=== PATIENT | male | born 1995 | race African-American/Black ===

== ENCOUNTER 2021-04-23 23:49 | Emergency (ER) | payer SELFPAY ==
[2021-04-23 23:51] VITALS: BP 168/109; PULSE 86; RESP 15; TEMP 36.3; O2SAT 99; BMI 29.1
--- NOTE | 2021-04-24 00:10 | EX.ED.DYSGE1 ---
HPI History of Present Illness Chief Complaint: Hypertension Informant: patient and spouse/S.O. Narrative Narrative: Patient presents with high blood pressure. This patient was diagnosed with high blood pressure back when he was in high school. He has a strong family history of high blood pressure. He was on an unknown medicine until about a year and a half ago. He stopped it because of side effects. He does not know the name of it. He comes in because he has noticed over the last weeks his blood pressure is going up. When the blood pressure is high he will sometimes get mild sense of lightheadedness or transient blurry vision. He feels fine now. No change in urine output. No fevers chills. No numbness tingling weakness. No trouble breathing. PFSH PFSH Home Medications amlodipine 5 mg PO DAILY #30 tab 04/24/21 [Rx Last Taken Unknown] Allergy/AdvReac Type Severity Reaction Status Date / Time No Known Allergies Allergy Verified 04/23/21 23:52 Social History Smoking Status: Current every day smoker tobacco type: e-cigarettes ROS ROS ED Constitutional Constitutional ED: Denies chills or fever(s) Eyes Eyes: Reports blurry vision; Denies diplopia ENT ENT ED: Denies rhinorrhea or sore throat Cardiovascular Cardiovascular: Denies chest pain, palpitations or racing heartbeat Respiratory/Chest Respiratory/Chest: Denies cough or dyspnea Gastrointestinal Gastrointestinal: Denies nausea or vomiting Genitourinary Genitourinary ED: Denies urinary frequency Musculoskeletal Musculoskeletal: Denies arthralgias or myalgias Integumentary Denies rash Neurologic Neurologic: Reports headache(s) and other Details: Mild headache diffusely if his blood pressure is up. Not currently present. ; Denies paresthesias or weakness Psychiatric Psychiatric: Denies anxiety or depression Endocrine Endocrinology: Denies polydipsia or polyuria Allergic/Immunologic Allergic/Immunologic ED: Denies urticaria EXAM Physical Exam Const Vital Signs: 04/23/21 23:51 04/23/21 23:53 Temperature 97.4 F L Temperature Source Temporal Pulse Rate 86 Respiratory Rate 15 Respiratory Effort Normal Non-Labored Respiratory Pattern Normal Blood Pressure 168/109 H Blood Pressure Mean 128 Pulse Ox 99 Oxygen Delivery Method Room Air Positive well nourished and well developed General Appearance ED: well developed and NAD; Negative for cyanotic or diaphoretic HEENT Reports moist mucous membranes Negative for trauma Eyes PERRL and EOMs intact bilaterally Eyes Narrative: Funduscopic exam was done directly. I did not see any indication of AV nicking which surprised me with his history. Overall normal exam. Neck supple Chest Wall inspection of chest normal Resp normal respiratory effort and clear to auscultation bilaterally Effort and Inspection: Negative for pain with movement Auscultation: Negative for rales, rhonchi or wheezes Cardio regular rate, regular rhythm and no murmurs GI normal to inspection, nondistended, normoactive bowel sounds and non-tender Palpation: soft Back/Spine no CVA tenderness Neuro no sensory deficits noted Sensorium / Orientation: alert; Negative for lethargic or stuporous Motor Exam: strength 5/5 throughout Psych mental status grossly normal Skin no rashes or lesions noted MDM MDM MDM Narrative Medical decision making narrative: I talked the patient about options. We were talking about doing blood work to make sure renal function was normal. Would consider chest x-ray looking at cardiac size. Patient states he feels fine. He knows he needs to be back on his meds. He really would just like to try to get some medication and follow-up. I think this is a reasonable option. He is asymptomatic now. I explained that I will give him a number to follow-up with. However he is welcome to follow-up with anyone. However, follow-up is extremely important and is one of the most important parts of today's visits. We need to see if the dose of medicine I give him helps. He may need to change either dose or type of medication for effectiveness or side effects. If he develops chest pain, trouble breathing, neurologic symptoms bad headaches he may need to return. I will give him refills on the meds. I know it can take a while to get into a primary physician on first visit. Discharge Plan Triage Chief Complaint: Hypertension ED Provider: Gurjit Sellers Dx/Rx/DC Orders Clinical Impression: Hypertension Instructions: ED High Blood Pressure Hypertension Prescriptions: New amlodipine 5 mg tablet 5 mg PO DAILY Qty: 30 RF: 2 Primary Care Provider: Care Physician,No Primary Referrals: Alfonso Cordero MD [STAFF PHYSICIAN] - As soon as possible Care Physician,No Primary [Primary Care Provider] - Disposition Disposition: Home, Self Care
[2021-04-24] MEDS: amLODIPine 5 MG Tablet PO (00:23)
[2021-04-24 00:25] VITALS: BP 175/100; PULSE 75; RESP 17; O2SAT 100
== END 2021-04-24 00:26 | disposition home or self-care (01) ==
PROVIDERS: Emergency Provider Emergency Medicine; Visit Provider Emergency Medicine
DX: I10 Essential (primary) hypertension (principal); F17.290 Nicotine dependence, other tobacco product, uncomplicated
CPT/HCPCS: 99283

== ENCOUNTER 2021-07-06 21:05 | Emergency (ER) | payer SELFPAY ==
[2021-07-06 21:06] VITALS: BP 147/96; PULSE 86; RESP 16; TEMP 36.6; O2SAT 99; BMI 29.0
--- NOTE | 2021-07-06 21:36 | EX.ED.DYSGE1 ---
HPI History of Present Illness Chief Complaint: Back Informant: patient Onset/Context/Timing Onset: Today Context: Gradual Onset Current Severity: Moderate Maximum Severity: Moderate Narrative Narrative: Patient present secondary to back pain and spasm. He picked up his daughter's car seat earlier today and felt a slight pull in his back. After a car ride he noted increased tightness in his back. He has pain radiating into the thighs bilaterally. There was no fall or direct injury to his back. PFSH PFSH no medical history Home Medications amlodipine 5 mg PO DAILY #30 tab 04/24/21 [Rx Last Taken Unknown] cyclobenzaprine 10 mg PO BID PRN #10 tab 07/06/21 [Rx Last Taken Unknown] naproxen [Naprosyn] 500 mg PO BID PRN #20 tab 07/06/21 [Rx Last Taken Unknown] Allergy/AdvReac Type Severity Reaction Status Date / Time No Known Allergies Allergy Verified 07/06/21 21:05 Social History Smoking Status: Current every day smoker tobacco type: e-cigarettes ROS ROS ED Constitutional Constitutional ED: Denies chills or fever(s) Eyes Eyes: Denies change in vision ENT ENT ED: Denies sore throat Cardiovascular Cardiovascular: Denies chest pain Respiratory/Chest Respiratory/Chest: Denies cough or dyspnea Gastrointestinal Gastrointestinal: Denies abdominal pain, nausea or vomiting Genitourinary Genitourinary ED: Denies dysuria Musculoskeletal Musculoskeletal: Reports back pain Integumentary Denies rash Neurologic Neurologic: Denies headache(s) or weakness Allergic/Immunologic Allergic/Immunologic ED: Denies urticaria EXAM Physical Exam Const Vital Signs: 07/06/21 21:06 Temperature 98 F Temperature Source Temporal Pulse Rate 86 Respiratory Rate 16 Blood Pressure 147/96 H Blood Pressure Mean 113 Pulse Ox 99 Oxygen Delivery Method Room Air Positive well nourished and well developed General Appearance ED: well developed HEENT Reports moist mucous membranes Eyes PERRL and EOMs intact bilaterally Neck supple Chest Wall inspection of chest normal and palpation of chest normal Resp normal respiratory effort and clear to auscultation bilaterally Cardio regular rate and regular rhythm GI normal to inspection, nondistended, normoactive bowel sounds and non-tender Palpation: soft Back/Spine Back/Spine Narrative: No midline thoracic or lumbar tenderness. There is reproducible tenderness in the lumbar paraspinal muscles left greater than right. No overlying skin change. Extremity normal to inspection Neuro oriented x3 and no sensory deficits noted Sensorium / Orientation: alert Motor Exam: strength 5/5 throughout Psych mental status grossly normal Skin no rashes or lesions noted MDM MDM MDM Narrative Medical decision making narrative: Patient given a dose of Naprosyn and Flexeril here. He already has a Lidoderm patch on his back. With no direct trauma or injury I do not feel imaging is needed. Patient is given prescriptions for Naprosyn and Flexeril. Return instructions provided. Discharge Plan Triage Chief Complaint: Back ED Provider: Nannette Ramires Dx/Rx/DC Orders Clinical Impression: Back pain, Paraspinal muscle spasm Instructions: ED Back Pain (Acute or Chronic), ED Back Sprain/Strain Prescriptions: New naproxen [Naprosyn] 500 mg tablet 500 mg PO BID PRN (Reason: pain) Qty: 20 RF: 0 cyclobenzaprine 10 mg tablet 10 mg PO BID PRN (Reason: muscle spasm) Qty: 10 RF: 0 No Action amlodipine 5 mg tablet 5 mg PO DAILY Qty: 30 RF: 2 Stand Alone Forms: ED Work / School Excuse Primary Care Provider: Care Physician,No Primary Referrals: Cristopher Quintana MD [STAFF PHYSICIAN] - As Needed Care Physician,No Primary [Primary Care Provider] - Disposition Disposition: Home, Self Care Discharge Date/Time: 07/06/21 21:47
[2021-07-06] MEDS: cycloBENZAPRine HCl 10 MG Tablet PO (21:42)
[2021-07-06] MEDS: Naproxen 500 MG Tablet PO (21:42)
== END 2021-07-06 21:47 | disposition home or self-care (01) ==
PROVIDERS: Emergency Provider Emergency Medicine; Visit Provider Emergency Medicine
DX: M62.830 Muscle spasm of back (principal); M54.9 Dorsalgia, unspecified; F17.290 Nicotine dependence, other tobacco product, uncomplicated
CPT/HCPCS: 99283

== ENCOUNTER 2022-01-30 10:27 | Emergency (ER) | payer SELFPAY ==
[2022-01-30 10:28] VITALS: BP 175/113; PULSE 99; RESP 16; TEMP 36.4; O2SAT 99; BMI 28.8
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
--- NOTE | 2022-01-30 10:55 | RAD_ITS ---
STUDY: X-RAY - LUMBAR SPINE REASON FOR EXAM: Male, 26 years old. Injury TECHNIQUE: 2 view(s) of the lumbar spine were obtained. COMPARISON: None FINDINGS: Normal lumbar lordosis. There is no substantial scoliosis. There is a normal alignment of the vertebrae. Normal vertebral bodies and endplates. Normal disc space heights. The soft tissue structures are unremarkable. RAD/Lumbar Spine 2 or 3 Views IMPRESSION: Normal x-ray examination of the lumbar spine. Electronically Signed: Alfredo Tenorio MD at 11:07 EDT ,
== END 2022-01-30 11:18 | disposition home or self-care (01) ==
PROVIDERS: Emergency Provider Emergency Medicine; Visit Provider Emergency Medicine
DX: S39.012A Strain of muscle, fascia and tendon of lower back, initial encounter (principal); F17.290 Nicotine dependence, other tobacco product, uncomplicated; I10 Essential (primary) hypertension; I49.8 Other specified cardiac arrhythmias; Z79.899 Other long term (current) drug therapy; Y04.8XXA Assault by other bodily force, initial encounter; Y93.9 Activity, unspecified; Y99.9 Unspecified external cause status; Y92.9 Unspecified place or not applicable
CPT/HCPCS: 72100; 99282

== ENCOUNTER 2022-07-02 06:26 | Emergency (ER) | payer SELFPAY ==
[2022-07-02 06:27] VITALS: BP 174/130; PULSE 69; RESP 18; TEMP 36.6; O2SAT 100; BMI 26.6
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
--- NOTE | 2022-07-02 06:56 | RAD_ITS ---
HISTORY: Injury/Pain. TECHNIQUE: XR Shoulder Min 2 Views. COMPARISON: None. FINDINGS: BONES : No acute fracture identified. Mineralization unremarkable. JOINTS: No dislocation. Joint spaces maintained. SOFT TISSUES: Right lung apex clear. RAD/Shoulder min 2 Views IMPRESSION: No acute fracture or dislocation identified in the right shoulder. Electronically Signed: Amina Molina MD at 8:15 EDT ,
--- NOTE | 2022-07-02 06:56 | RAD_ITS ---
HISTORY: Injury/Pain. TECHNIQUE: XR Spine Cervical 2 or 3 Views. COMPARISON: None. FINDINGS: VERTEBRAE: Vertebral body heights maintained. No acute fracture identified. ALIGNMENT: No significant anterior or posterior subluxation. Mild reversal of the cervical lordosis. INTERVERTEBRAL DISCS: Mild degenerative endplate changes with small osteophytes of C4-5, C5-6, and C6-7. SOFT TISSUES: No significant prevertebral soft tissue swelling. RAD/Cerv Spine 2 or 3 Views IMPRESSION: No acute fracture or dislocation identified in the cervical spine. Electronically Signed: Amina Molina MD at 8:15 EDT ,
[2022-07-02] MEDS: Naproxen 500 MG Tablet PO (07:17)
[2022-07-02 08:08] VITALS: BP 121/66; PULSE 59; RESP 16; O2SAT 99
== END 2022-07-02 08:09 | disposition home or self-care (01) ==
PROVIDERS: Emergency Provider Emergency Medicine; Visit Provider Emergency Medicine
DX: S16.1XXA Strain of muscle, fascia and tendon at neck level, initial encounter (principal); I10 Essential (primary) hypertension; S43.004A Unspecified dislocation of right shoulder joint, initial encounter; W51.XXXA Accidental striking against or bumped into by another person, initial encounter; Y93.61 Activity, american tackle football; F17.290 Nicotine dependence, other tobacco product, uncomplicated
CPT/HCPCS: 72040; 73030; 99283

== ENCOUNTER 2023-01-26 05:38 | Emergency (ER) | payer SELFPAY ==
[2023-01-26 05:40] VITALS: BP 158/98; PULSE 68; RESP 18; TEMP 36.2; O2SAT 98; BMI 31.1
--- NOTE | 2023-01-26 06:10 | RAD_ITS ---
STUDY: X-RAY - CLAVICLE REASON FOR EXAM: pain TECHNIQUE: Standard views of the left clavicle. COMPARISON: None. FINDINGS: No fracture. Acromioclavicular joint is unremarkable. No evidence of a sternoclavicular abnormality. No soft tissue abnormality. RAD/Clavicle IMPRESSION: No evidence of a left clavicular fracture. Electronically Signed: Angel De Jesus DO at 6:29 EDT ,
[2023-01-26] MEDS: Orphenadrine 100 MG Tablet PO (06:24)
--- NOTE | 2023-01-26 06:52 | EX.ED.DYSGE1 ---
HPI History of Present Illness Chief Complaint: Chest Other Informant: patient Narrative Narrative: Patient is a 27-year-old male with past medical history of ADHD and hypertension. He states he was playing arena football when he made a tackle and afterwards noticed some pain to his chest/shoulder. He states he was able to finish the game but he has noticed that the pain is persisted and secondary to this he comes in for evaluation. PFSH PFS Medical History (Updated 02/03/23 @ 00:03 by Palbo Vickers) ADHD Brugada syndrome Hypertension Home Medications hydrocodone-acetaminophen 5-325mg 5mg-325mg 1 tab PO Q6H PRN pain 3 days #12 tabs 01/26/23 [Rx Last Taken Unknown] methocarbamol 500 mg tablet 1,000 mg (2 x 500 mg) PO 4X/DAY PRN PRN Muscle pain/spasm 7 days #56 tabs 01/26/23 [Rx Last Taken Unknown] Allergy/AdvReac Type Severity Reaction Status Date / Time No Known Allergies Allergy Verified 01/26/23 05:45 Surgical History (Updated 07/02/22 @ 06:[address] Renato Em DO) History of tonsillectomy Hx of foot surgery Social History (Updated 07/02/22 @ 06:[address] Renato Em DO) Smoking Status: Current every day smoker tobacco type: e-cigarettes substance use type: marijuana ROS ROS ED Constitutional Constitutional ED: Denies chills or fever(s) Eyes Eyes: Denies change in vision ENT ENT ED: Denies sore throat Cardiovascular Cardiovascular: Reports chest pain; Denies palpitations or racing heartbeat Respiratory/Chest Respiratory/Chest: Denies cough or dyspnea Gastrointestinal Gastrointestinal: Denies abdominal pain, diarrhea, nausea or vomiting Genitourinary Genitourinary ED: Denies dysuria Musculoskeletal Musculoskeletal: Reports arthralgias; Denies back pain, myalgias or neck pain Integumentary Denies Abrasions or rash Neurologic Neurologic: Denies headache(s) or paresthesias Hematologic/Lymphatic Hematologic/Lymphatic: Denies easy bleeding or easy bruising EXAM Physical Exam Const Vital Signs: 01/26/23 05:40 Temperature 97.2 F L Temperature Source Temporal Pulse Rate 68 Respiratory Rate 18 Blood Pressure 158/98 H Blood Pressure Mean 118 Pulse Ox 98 Oxygen Delivery Method Room Air Positive well nourished and well developed General Appearance ED: well developed HEENT HEENT Narrative: Normocephalic atraumatic Eyes PERRL and EOMs intact bilaterally General Eye ED: Negative for scleral icterus Neck supple Neck Narrative: No bony deformity or step-off of the cervical spine no midline pain on palpation Patient does have tension and spasm and pain noted of the left SCM that worsens with side bending and rotation. Chest Wall Chest Narrative: There is reproducible anterior midsternal to left chest wall pain with palpation without bony deformity or crepitance Resp normal respiratory effort and clear to auscultation bilaterally Cardio regular rate and regular rhythm Rate: other Other Details: Heart is regular rate and rhythm without murmurs rubs or gallops Radial and carotid pulses equal and symmetric Back/Spine Back/Spine Narrative: No bony deformity or step-off of the thoracic or lumbar spine no midline pain on palpation Extremity Extremity Narrative: Patient has mild pain on palpation of the left shoulder diffusely without bony deformity or joint effusion or sulcus sign Active range of motion is slightly decreased secondary to pain Remainder of the exam is normal Neuro oriented x3, CN's II-XII intact bilaterally and no sensory deficits noted Sensorium / Orientation: alert Psych mental status grossly normal Skin no rashes or lesions noted MDM MDM MDM Narrative Medical decision making narrative: Patient presented to the ER hypertensive but has a past medical history of this. He reported pain of the left chest/clavicle after a tract injury and therefore concern is for clavicle fracture versus shoulder fracture versus rib fracture versus pneumothorax. Based on the patient's history and mechanism I do not feel that this is coronary in nature and do not feel the need for an EKG or cardiac work-up. The main portion of his pain is located over top the midportion of the left clavicle and therefore an x-ray of this was obtained. The x-ray was negative for acute fracture and after treatment the patient has had improvement of pain and therefore with negative x-rays he is otherwise safe for discharge History & Record Review Discussion w/independent historian: Patient Radiography Diagnostic Testing: Clinical Impression(s) from Imaging Studies Clavicle X-Ray 01/26/23 06:10 IMPRESSION: No evidence of a left clavicular fracture. Electronically Signed: Angel De Jesus DO at 6:29 EDT , X-ray of the left clavicle as interpreted by the emergency medicine physician reveals no acute fracture or dislocation Discharge Plan Triage Chief Complaint: Chest Other ED Provider: Jc Villa Dx/Rx/DC Orders Clinical Impression: Strain of sternocleidomastoid muscle, Contusion of left clavicle Instructions: Bone Contusion, Understanding Cervical Strain Prescriptions: New methocarbamol 500 mg tablet 1,000 mg PO 4X/DAY PRN PRN (Reason: Muscle pain/spasm) 7 Days Qty: 56 1RF hydrocodone-acetaminophen 5-325 mg tablet 1 tab PO Q6H PRN (Reason: pain) 3 Days Qty: 12 0RF Stand Alone Forms: ED Work / School Excuse Primary Care Provider: Care Physician,No Primary Referrals: Cristopher Quintana MD [Med Staff - Active Staff] - Care Physician,No Primary [Primary Care Provider] - Disposition Disposition: Home, Self Care Discharge Date/Time: 01/26/23 07:10
== END 2023-01-26 07:10 | disposition home or self-care (01) ==
PROVIDERS: Emergency Provider Emergency Medicine; Visit Provider Emergency Medicine
DX: S40.012A Contusion of left shoulder, initial encounter (principal); I10 Essential (primary) hypertension; F17.210 Nicotine dependence, cigarettes, uncomplicated; F12.90 Cannabis use, unspecified, uncomplicated; F90.9 Attention-deficit hyperactivity disorder, unspecified type; X58.XXXA Exposure to other specified factors, initial encounter
CPT/HCPCS: 73000; 99282

== ENCOUNTER 2023-11-05 07:26 | Emergency (ER) | payer OTHER, SELFPAY ==
[2023-11-05 07:27] VITALS: BP 163/119; PULSE 75; RESP 16; TEMP 36.4; O2SAT 99; BMI 28.7
--- NOTE | 2023-11-05 07:50 | RAD_ITS ---
STUDY: X-RAY - LEFT ANKLE REASON FOR EXAM: Male, 28 years old. Pain rolled ankle Thursday. TECHNIQUE: 3 views of the left ankle. COMPARISON: None. FINDINGS: Normal visualized distal tibia and fibula. Normal medial and lateral malleoli. Normal tibiotalar articulation and ankle mortise. Normal visualized talus and calcaneus. The visualized subtalar, talonavicular, calcaneocuboid and tarsal articulations are normal. There is no demonstrated fracture. There is mild soft tissue swelling overlying the lateral ankle. RAD/Ankle min 3 Views IMPRESSION: Mild soft tissue swelling overlying the lateral ankle. Electronically Signed: Ryder Power MD at 8:11 EDT ,
--- NOTE | 2023-11-05 07:50 | RAD_ITS ---
STUDY: X-RAY - LEFT FOOT CLINICAL: Male, 28 years old. Pain. TECHNIQUE: 3 views of the left foot. COMPARISON: None. FINDINGS: Normal talus, calcaneus, and tarsal bones. Normal visualized subtalar, talonavicular, calcaneocuboid, tarsal and tarsometatarsal articulations. Normal metatarsi. Normal metatarsophalangeal joint of the great toe. Normal tibial and fibular sesamoid bones. Normal interphalangeal joint of the great toe. Normal phalanges of the great toe. Normal second through fifth metatarsophalangeal joints. Normal interphalangeal joints and phalanges of the lesser toes. The soft tissue structures are unremarkable. There is no demonstrated fracture. RAD/Foot min 3 Views IMPRESSION: Normal x-ray examination of the left foot. Electronically Signed: Ryder Power MD at 8:10 EDT ,
--- NOTE | 2023-11-05 07:50 | RAD_ITS ---
STUDY: X-RAY - LEFT TIBIA AND FIBULA REASON FOR EXAM: Male, 28 years old. Pain. TECHNIQUE: 2 views of the left tibia and fibula were obtained. COMPARISON: None. FINDINGS: Normal visualized tibia. Normal visualized fibula. There is no demonstrated acute fracture. The soft tissue structures are unremarkable. RAD/Tibia & Fibula 2 Views IMPRESSION: Normal x-ray examination of the left tibia and fibula. Electronically Signed: Ryder Power MD at 8:12 EDT ,
--- NOTE | 2023-11-05 08:39 | EDS_ITS ---
HPI History of Present Illness Chief Complaint: Lower Extremity Injury Narrative Narrative: Patient is a 28-year-old male with a past medical history of hypertension who presents to the emergency department with a chief complaint of left ankle pain. He states that last Thursday he was playing in a football game and noted that he twisted his ankle and had pain since then. He states that has been able to ambulate on it since the injury. He states that he went to work and decided to come here today for further evaluation management. Patient states that he wanted to be ensure that nothing else was broken as he has a game coming up again on Thursday. Patient denies any other pain. [facility] Medical History Brugada syndrome ADHD Hypertension Home Medications ?Medication ?Instructions ?Recorded ?Last Taken ?Type hydrocodone-acetaminophen 5-325mg 1 tab PO Q6H PRN pain 3 days #12 01/26/23 Unk nown Rx 5mg-325mg tabs methocarbamol 500 mg tablet 1,000 mg (2 x 500 mg) PO 4X/DAY 01/26/23 Unknown Rx PRN PRN Muscle pain/spasm 7 days #56 tabs Allergy/AdvReac Type Severity Reaction Status Date / Time No Known Allergies Allergy Verified 11/05/23 07:26 Surgical History Hx of foot surgery History of tonsillectomy Social History (Updated 07/02/22 @ 06:[address] Renato Em DO) Smoking Status: Current every day smoker tobacco type: e-cigarettes substance use type: marijuana ROS ROS ED ROS Narrative Constitutional: Denies any fevers, chills, headaches Eyes: Denies change in vision double vision blurry vision Cardiovascular: Denies chest pain or palpitations Respiratory: Denies cough or wheezing shortness of breath Abdomen: Denies abdominal pain nausea vomit diarrhea Neurological: Denies numbness, weakness, tingling Musculoskeletal: Complains of left ankle pain as noted above Skin: Denies rashes or lesions EXAM Physical Exam Narrative Exam Narrative: General: Patient lying in bed rest comfortably did not appear to be in acute distress Head: Atraumatic, normocephalic Eyes: PERRL bilaterally, EOMI bilaterally, no conjunctival injection noted Neck: Soft, supple, trachea midline Cardiovascular: Regular rate and rhythm no murmurs gallops rubs noted Respiratory: Clear to auscultation bilaterally Abdomen: No tenderness palpation Musculoskeletal: Patient has tenderness palpation over the left lateral foot just distal and lateral to the lateral malleolus Extremities: +5/5 strength noted in the bilateral upper and lower extremities, DP pulses +2/4 in the bilateral lower extremities, no pedal edema neuroexam Neurological: Patient knew that he is at [facility] year is 2023 Skin: Warm, dry, intact Const Vital Signs: 11/05/23 07:27 Temperature 97.6 F L Temperature Source Temporal Pulse Rate 75 Respiratory Rate 16 Blood Pressure 163/119 H Blood Pressure Mean 133 Pulse Ox 99 Oxygen Delivery Method Room Air MDM MDM MDM Narrative Medical decision making narrative: Patient is a 28-year-old male who presented to the emerged part with chief complaint of left ankle and foot pain. Patient had a workup performed here on the differential diagnose includes but not limited to ankle sprain, lateral malleolus fracture, medial malleolus fracture, tibia fracture. Once workup is obtained reviewed he will be reevaluated. Patient states he would not like anything for pain at this point time. patient's x-ray of his ankle reviewed showed mild soft tissue swelling over the lateral ankle. Patient's x-ray of his foot reviewed showed no acute findings. And patient's x-ray of his tibia-fibula reviewed and showed normal examination of the left tibia and fibula. On reevaluation the patient he was noted be hypertensive here in the emergency department and I further questions about hypertension and he states that he has a strong family history of hypertension. He states that he has had this since high school and notes that he has seen multiple physicians for this. He states that he has not any medication as he does not want to be on any medications he states that he does not like taking pills. I educated him on the importance of controlling hypertension and he verbalized understanding of this however he states that he does not want to be put on any blood pressure medication. He states that he tries to be healthy and drinks a lot of water stays away from salt products and tries to control his temper. Patient would like a walking boot for pain control. Patient would like to go home at this point time he was encouraged to ice elevate and use Tylenol ibuprofen for pain control at home. He was encouraged to follow-up with primary care physician. He once again was strongly encouraged to reconsider treating his hypertension. All question concerns answered discharged home in stable condition. Radiography Diagnostic Testing: Clinical Impression(s) from Imaging Studies Ankle X-Ray 11/05/23 07:50 IMPRESSION: Mild soft tissue swelling overlying the lateral ankle. Electronically Signed: Ryder Power MD at 8:11 EDT , Foot X-Ray 11/05/23 07:50 IMPRESSION: Normal x-ray examination of the left foot. Electronically Signed: Ryder Power MD at 8:10 EDT , Tibia/Fibula X-Ray 11/05/23 07:50 IMPRESSION: Normal x-ray examination of the left tibia and fibula. Electronically Signed: Ryder Power MD at 8:12 EDT , Discharge Plan Triage Chief Complaint: Lower Extremity Injury ED Provider: Tony Avendaño Dx/Rx/DC Orders Clinical Impression: Ankle sprain, Hypertension Instructions: ED High Blood Pressure Hypertension, ED Ankle Sprain (Adult) Prescriptions: No Action methocarbamol 500 mg tablet 1,000 mg PO 4X/DAY PRN PRN (Reason: Muscle pain/spasm) 7 Days Qty: 56 1RF hydrocodone-acetaminophen 5-325 mg tablet 1 tab PO Q6H PRN (Reason: pain) 3 Days Qty: 12 0RF Primary Care Provider: Care Physician,No Primary Referrals: Care Physician,No Primary [Primary Care Provider] - Cristopher Quintana MD [Med Staff - Active Staff] - Print Language: [place] Disposition Disposition: Home, Self Care
[2023-11-05 09:12] VITALS: BP 179/86; PULSE 73; RESP 15; TEMP 36.4; O2SAT 99
== END 2023-11-05 09:13 | disposition home or self-care (01) ==
PROVIDERS: Emergency Provider Emergency Medicine; Visit Provider Emergency Medicine
DX: S93.402A Sprain of unspecified ligament of left ankle, initial encounter (principal); I10 Essential (primary) hypertension; F17.210 Nicotine dependence, cigarettes, uncomplicated; F90.9 Attention-deficit hyperactivity disorder, unspecified type; I49.8 Other specified cardiac arrhythmias; X50.1XXA Overexertion from prolonged static or awkward postures, initial encounter; Y93.61 Activity, american tackle football; Y92.321 Football field as the place of occurrence of the external cause
CPT/HCPCS: 73590; 73610; 73630; 99282